=== PATIENT | female | born 1955 | race Caucasian/White ===

== ENCOUNTER 2017-06-27 16:09 | Emergency (ER) | payer MEDICAID, OTHER ==
[~2017-06-27] VITALS: Ht 175.3 cm; Wt 68.0 kg
[2017-06-27 16:57] VITALS: BP 149/84
[2017-06-27] MEDS ORDERED: diphenhdrAMINE HCL 25 MG CAP PO ONE (18:45)
[2017-06-27] MEDS ORDERED: PROMETHAZINE HCL 25 MG/ML 1ML IM ONE (18:45)
[2017-06-27] MEDS ORDERED: KETOROLAC TROMETH 60MG/2ML VIAL IM ONE (18:45)
[2017-06-27] MEDS ORDERED: SODIUM CHLORIDE 0.9% 1,000 ML IV ONE ×2 (19:46)
[2017-06-27 20:56] LABS: Basophils # (auto) 0 uL; Basophils % (auto) 0.2 % (0.0-2.0); CONDITION Y; Eosinophils # (auto) 0 uL; Hematocrit 40.2 % (36.0-46.0); Hemoglobin 13.7 g/dL (12.2-16.2); Lymphocytes # (auto) 1.2 uL; Lymphocytes % (auto) 14.6 % (10.0-50.0); Mean Corpuscular Hemoglobin 30.4 pg (28.0-32.0); Mean Corpuscular Hgb Conc. 34.1 g/dL (32.0-36.0); Mean Corpuscular Volume 88.9 fL (80.0-100.0); Mean Platelet Volume 7.8 fL (6.9-10.8); Monocytes # (auto) 0.5 uL; Neutrophils # (auto) 6.7 uL; Neutrophils % (auto) 79.2 % (37.0-80.0); Platelet Count (auto) 331 10^3/uL (140-450); Red Cell Distribution Width 13.6 % (11.8-14.3); White Blood Cell 8.4 10^3/uL (4.4-10.8)
[2017-06-27 21:05] LABS: Urine RBC None Seen /hpf (0 - 4)
[2017-06-27 21:20] LABS: Albumin 3.7 g/dL (3.4-5.0); BUN/Creatinine Ratio 12.1; Bilirubin, Total 0.5 mg/dL (0.2-1.0); Calcium 9.3 mg/dL (8.5-10.1); Potassium 3.7 mmol/L (3.5-5.1); Total Protein 7.5 g/dL (6.4-8.2)
[2017-06-27 21:56] LABS: Urine Bilirubin Negative (Negative); Urine Blood Negative /uL (Negative); Urine Color Yellow (Yellow); Urine Glucose Normal (Normal); Urine Ketone Negative (Negative); Urine Nitrite Negative (Negative); Urine Squamous Epithelial Cell FEW /hpf (<5); Urine Urobilinogen Normal (Negative)
== END 2017-06-27 22:21 | disposition home or self-care (01) ==
LOC: ER 16:17 → EDBD 16:17 → ER 22:21
DX: R51 Headache (principal); H53.149 Visual discomfort, unspecified
CPT/HCPCS: 36415; 70450; 80053; 80307; 81001; 85025; 96360; 96361; 96372; 99285; J1885; J2550